=== PATIENT | male | born 1960 | race Two or more races ===

== ENCOUNTER 2018-05-20 10:36 | Emergency (ER) | payer MEDICARE, OTHER ==
[~2018-05-20] VITALS: Ht 175.3 cm; Wt 84.4 kg
[2018-05-20 10:59] VITALS: BP 147/91
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
[2018-05-20] MEDS ORDERED: LIDOCAINE WITH 8.4% SOD BICARB 3 ML DISP.SYRIN. IJ ONE (11:45)
== END 2018-05-20 11:51 | disposition home or self-care (01) ==
LOC: ER 10:36
DX: S01.01XA Laceration without foreign body of scalp, initial encounter (principal); W20.8XXA Other cause of strike by thrown, projected or falling object, initial encounter; Y93.89 Activity, other specified; Y92.149 Unspecified place in prison as the place of occurrence of the external cause; Y99.8 Other external cause status
CPT/HCPCS: 12001; 99283

== ENCOUNTER 2018-05-26 11:11 | Emergency (ER) | payer OTHER ==
[~2018-05-26] VITALS: Ht 175.3 cm; Wt 83.9 kg
[2018-05-26 11:20] VITALS: BP 142/87
--- NOTE | 2018-05-26 11:30 | PHYS DOC ---
Past History Past Medical History: High Cholesterol Past Surgical History: No Surgical History Alcohol Use: Occasionally Drug Use: None Social History Narrative: Pt 1 PPD smoker also "everyday beer drinker" Adult General Chief Complaint Chief Complaint: SUTURE/STAPLE REMOVAL [facility] 58-year-old male patient presented to ER for suture removal from his scalp that was placed 1 week ago in this emergency room. Patient denies any symptoms. Review of Systems Review of Systems Constitutional: Denies fever or chills [] Eyes: Denies change in visual acuity, redness, or eye pain [] HENT: Denies nasal congestion or sore throat [] Respiratory: Denies cough or shortness of breath [] Cardiovascular: No additional information not addressed in HPI [] GI: Denies abdominal pain, nausea, vomiting, bloody stools or diarrhea [] : Denies dysuria or hematuria [] Musculoskeletal: Denies back pain or joint pain [] Integument: Denies rash or skin lesions [] Neurologic: Denies headache, focal weakness or sensory changes [] Endocrine: Denies polyuria or polydipsia [] All other systems were reviewed and found to be within normal limits, except as documented in this note. Allergies Allergies Allergies Coded Allergies Type Severity Reaction Last Updated Verified No Known Drug Allergies 07/11/14 No Physical Exam Physical Exam Constitutional: Well developed, well nourished, no acute distress, non-toxic appearance. [] HENT: Normocephalic, healed small laceration of parietal scalp with [address],oropharynx moist, no oral exudates, nose normal. [] Eyes: PERRLA, EOMI, conjunctiva normal, no discharge. [] Neck: Normal range of motion, no tenderness, supple, no stridor. [] Cardiovascular:Heart rate regular rhythm, no murmur [] Lungs & Thorax: Bilateral breath sounds clear to auscultation [] Neurologic: Alert and oriented X 3, normal motor function, normal sensory function, no focal deficits noted. [] Psychologic: Affect normal, judgement normal, mood normal. [] Current Patient Data Vital Signs Vital Signs Date Time Temp Pulse Resp B/P (MAP) Pulse Ox O2 Delivery O2 Flow Rate FiO2 05/26/18 11:20 97.7 83 16 98 Room Air EKG EKG [] Radiology/Procedures Radiology/Procedures [] Course & Med Decision Making Course & Med Decision Making 2 jennifer was removed from scalp by [employer]. Kp Disclaimer Kp Disclaimer This electronic medical record was generated, in whole or in part, using a voice recognition dictation system. Departure Departure: Impression: Primary Impression: Removal of staple Additional Impression: Tobacco abuse counseling Disposition: HOME, SELF-CARE (At 1129) Condition: STABLE Referrals: NICHO FLORIAN MD (PCP) Patient Instructions: Smoking Cessation, Tips For Success, Staple Removal, Care After Additional Instructions: Keep wound clean and dry Problem Qualifiers MATEUSZ MESA MD May 26, 2018 11:30
== END 2018-05-26 11:34 | disposition home or self-care (01) ==
LOC: ER 11:11
DX: S01.01XD Laceration without foreign body of scalp, subsequent encounter (principal); E78.00 Pure hypercholesterolemia, unspecified; F17.200 Nicotine dependence, unspecified, uncomplicated; Z71.6 Tobacco abuse counseling; X58.XXXD Exposure to other specified factors, subsequent encounter
CPT/HCPCS: 99281

== ENCOUNTER 2020-05-01 05:26 | Observation (INO) | payer OTHER ==
[~2020-05-01] VITALS: Ht 175.3 cm; Wt 78.4 kg
--- NOTE | 2020-05-01 05:51 | PHYS DOC ---
Past History Past Medical History: High Cholesterol, Other Additional Past Medical Histor: prostate CA (EVELYN NICKERSON DO) Past Surgical History: No Surgical History (EVELYN NICKERSON DO) Alcohol Use: Occasionally Drug Use: None (EVELYN NICKERSON DO) General Adult EDM: Chief Complaint: ABSCESS HPI: HPI: 60-year-old male presents with perineal abscess. The patient had an abscess in this area that was surgically debrided by general surgeon a few years ago. He is concerned that it has recurred. Feels like it is been getting larger for abo ut a week. There is a lot of pressure and pain at this time. The patient would not prefer to have it numbed and drained in the ER. He denies fever chills. He has no other complaints at this time. (EVELYN NICKERSON DO) Review of Systems: Review of Systems: Constitutional: Denies fever or chills Eyes: Denies change in visual acuity HENT: Denies nasal congestion or sore throat Respiratory: Denies cough or shortness of breath Cardiovascular: Denies chest pain or edema GI: Denies abdominal pain, nausea, vomiting, bloody stools or diarrhea : Denies dysuria Musculoskeletal: Denies back pain or joint pain Integument: Abscess in the perineum Neurologic: Denies headache, focal weakness or sensory changes Endocrine: Denies polyuria or polydipsia Lymphatic: Denies swollen glands Psychiatric: Denies depression or anxiety (EVELYN NICKERSON DO) Heart Score: Risk Factors: Risk Factors: DM, Current or recent (<one month) smoker, HTN, HLP, family history of CAD, obesity. Risk Scores: Score 0 - 3: 2.5% MACE over next 6 weeks - Discharge Home Score 4 - 6: 20.3% MACE over next 6 weeks - Admit for Clinical Observation Score 7 - 10: 72.7% MACE over next 6 weeks - Early Invasive Strategies (EVELYN NICKERSON DO) Allergies: Allergies: Allergies Coded Allergies Type Severity Reaction Last Updated Verified No Known Drug Allergies 07/11/14 No (EVELYN NICKERSON DO) Physical Exam: PE: Constitutional: Well developed, well nourished, no acute distress, non-toxic appearance. [] HENT: Normocephalic, atraumatic, bilateral external ears normal, oropharynx moist, no oral exudates, nose normal. [] Eyes: PERRLA, EOMI, conjunctiva normal, no discharge. [] Neck: Normal range of motion, no tenderness, supple, no stridor. [] Cardiovascular:Heart rate regular rhythm, no murmur [] Lungs & Thorax: Bilateral breath sounds clear to auscultation [] Abdomen: Bowel sounds normal, soft, no tenderness, no masses, no pulsatile masses. [] Skin: 2 cm x 5 cm perineal abscess, extremely tender, no surrounding cellulitis. [] Back: No tenderness, no CVA tenderness. [] Extremities: No tenderness, no cyanosis, no clubbing, ROM intact, no edema. [] Neurologic: Alert and oriented X 3, normal motor function, normal sensory function, no focal deficits noted. [] Psychologic: Affect normal, judgement normal, mood normal. [] (EVELYN NICKERSON DO) PE: Constitutional: Well developed, well nourished, no acute distress, non-toxic appearance HENT: Normocephalic, atraumatic Eyes: Conjunctiva normal, no discharge Neck: Normal range of motion, no tenderness, supple Lungs & Thorax: No respiratory distress, equal chest rise and fall Abdomen: Soft, no tenderness Skin: Warm, dry, significant erythema and swelling at base of scrotum extending to left buttocks which is tender to palpation Extremities: No tenderness, ROM intact, no edema Neurologic: Alert and oriented X 3, no focal deficits noted Psychologic: Affect normal, judgment normal (SORIN BARBA DO) Current Patient Data: Vital Signs: Vital Signs Date Time Temp Pulse Resp B/P (MAP) Pulse Ox O2 Delivery O2 Flow Rate FiO2 05/01/20 05:26 98.2 87 18 151/91 (111) 99 Room Air (EVELYN NICKERSON DO) EKG: EKG: [] (EVELYN NICKERSON DO) Radiology/Procedures: Radiology/Procedures: [] (EVELYN NICKERSON DO) Radiology/Procedures: PROCEDURE: CT ABD PELV W/ IV CONTRST ONLY EXAM: CT Abdomen and Pelvis with IV contrast INDICATION: Reason: perineal abscess, H/O PROSTATE CA, OMNI 300, 75ml / Spl. Instructions: / History: TECHNIQUE: Multi-detector row CT images were acquired from the lung bases through the abdomen and pelvis with the use of IV contrast. Sagittal and coronal images were acquired from the transaxial data. All CT scans performed at this facility utilize dose optimization techniques as appropriate to the exam, including the following: Automated exposure control and adjustment of the mA and/or KV according to patient size (this includes techniques or standardized protocols for targeted exams where dose is indication/reason for exam). IV CONTRAST: Administered ORAL CONTRAST: Not administered COMPARISON: None FINDINGS: LOWER CHEST: Unremarkable LIVER: Unremarkable BILIARY SYSTEM: Gallbladder is unremarkable. Bile ducts are not dilated. PANCREAS: Unremarkable SPLEEN: Unremarkable ADRENALS: Unremarkable KIDNEYS & URETERS: Unremarkable BLADDER: Mild diffuse bladder wall thickening is present. REPRODUCTIVE ORGANS: Surgical changes from previous vasectomy are present. GASTROINTESTINAL: The stomach, small bowel, and colon are unremarkable. The appendix is normal. MESENTERY/PERITONEUM/RETROPERITONEUM: Unremarkable VASCULAR: Unremarkable LYMPH NODES: No adenopathy OSSEOUS & SOFT TISSUES: Low density soft tissue thickening in the subcutaneous fat in the left perineum is present measuring 3.5 cm AP by 1.5 cm mediolateral by 3.1 cm craniocaudal and could reflect the perianal abscess noted on clinical exam. No acute or aggressive appearing osseous lesions. IMPRESSION: Low density soft tissue mass or collection in the left perineum measuring 3.5 x 1.5 x 3.1 cm likely reflects the patient's known abscess. Apart from mild urinary bladder wall thickening that could be artifact of under distention, no acute inflammatory changes in the abdomen or pelvis otherwise noted. Correlate for any evidence of cystitis. Electronically signed by: Jose Edwards MD (05/01/2020 6:48 AM) [facility] (SORIN BARBA DO) Course & Med Decision Making: Course & Med Decision Making Pertinent Labs and Imaging studies reviewed. (See chart for details) The patient's work-up is pending. I am signing him out to Dr. Barba at 0600. He will determine his final disposition. [] (EVELYN NICKERSON DO) Course & Med Decision Making 0600- Sign out received from Dr. Nickerson for patient with perineal abscess. Hx of prior episode requiring surgical I&D with Dr. Jeter (general surgery). Patient pending laboratory and CT studies. Empiric antibiotics previously provided. Labs reviewed: CBC slightly elevated. Lactic acid WNL. BCX pending. CT imaging confirming perineal abscess measuring 3.5 x 1.5 x 3.1cm. Given reoccurrence of lesion and surrounding thickening concerning for cellulitis, patient requiring admission for further evaluation and treatment and general surgery consultation. Given possible surgical procedure, COVID testing obtained. Patient requiring transfer to [facility]. Notified Dr. Florian (PCP) who is in agreement. Discussed with Dr. Maddox (hospitalist) who is in agreement with transfer for admission. Discussed case with Dr. Ruggiero with Dr. Jeter (general surgery) who is in agreement with consultation. Discussed findings and plan with patient, who acknowledges understanding and agreement. (SORIN BARBA DO) Dragon Disclaimer: Dragon Disclaimer: This electronic medical record was generated, in whole or in part, using a voice recognition dictation system. (EVELYN NICKERSON DO) Departure Departure: Impression: Primary Impression: Abscess, perineum Additional Impression: Cellulitis of perineum Disposition: 05 TRANSFER OTHER ([facility]- Dr. Maddox (hospitalist) accepting) Condition: STABLE Referrals: NICHO FLORIAN MD (PCP) Justification of Admission: Justification of Admission: Justification of Admission Dx: N/A (EVELYN NICKERSON DO) Justification of Admission Dx: Yes Cellulitis: Cellulitis Comments: Perineal abscess (SORIN BARBA DO) EVELYN NICKERSON DO May 01, 2020 05:51 SORIN BARBA DO May 01, 2020 06:36
[2020-05-01] MEDS ORDERED: CONTRAST GIVEN MC PRN (06:00)
[2020-05-01] MEDS ORDERED: IV NORMAL SALINE 1,000ML 1,000 ML IV ONE (06:00)
[2020-05-01 06:16] LABS: BASO # 0.1 x10^3/uL (0.0-0.2); BASO % 1 % (0-3); EOS # 0.2 x10^3/uL (0.0-0.7); EOS % 1 % (0-3); HEMATOCRIT 42.9 % (39.0-53.0); HEMOGLOBIN 14.5 g/dL (13.0-17.5); LYMPH # 1.5 x10^3/uL (1.0-4.8); LYMPH % 12 % (24-48); MEAN CORPUSCULAR HEMOGLOBIN 32 pg (25-35); MEAN CORPUSCULAR HGB CONC 34 g/dL (31-37); MEAN CORPUSCULAR VOLUME 95 fL (79-100); MONO # 1.1 x10^3/uL (0.0-1.1); MONO % 9 % (0-9); NEUT # 9.6 x10^3uL (1.8-7.7); NEUT % 77 % (31-73); PLATELET COUNT 237 x10^3/uL (140-400); RED CELL DISTRIBUTION WIDTH 13.3 % (11.5-14.5); WHITE BLOOD COUNT 12.5 x10^3/uL (4.0-11.0)
[2020-05-01 06:25] LABS: CALCIUM 8.7 mg/dL (8.5-10.1); CREATININE 1.1 mg/dL (0.7-1.3); GFR 68.8; POTASSIUM 4.2 mmol/L (3.5-5.1)
[2020-05-01] MEDS ORDERED: PIPERACILLIN/TAZOBACTAM 3.375 GM in IV NORMAL SALINE 50ML 50 ML IV ONE ×2 (06:30→14:00)
[2020-05-01] MEDS ORDERED: IOHEXOL 300 MG/ML 75 ML VIAL. IV ONE (06:30)
[2020-05-01 06:31] LABS: BILIRUBIN,URINE NEG (NEG); CLARITY,URINE CLEAR; COLOR,URINE YELLOW; GLUCOSE,URINE NEG (NEG)
[2020-05-01 06:31] LABS: ALBUMIN 3.6 g/dL (3.4-5.0); TOTAL BILIRUBIN 0.7 mg/dL (0.2-1.0); TOTAL PROTEIN 7.2 g/dL (6.4-8.2)
[2020-05-01 06:32] LABS: BACTERIA,URINE 0 /HPF (0-FEW); NITRITE,URINE NEG (NEG); UROBILINOGEN,URINE 0.2 mg/dL (0.2 mg/dL); WBC,URINE 0 /HPF (0-4)
[2020-05-01] MEDS ORDERED: IV NORMAL SALINE 50ML 50 ML ONE ×3 (06:45→20:57)
[2020-05-01] MEDS ORDERED: PIPERACILLIN/TAZOBACTAM 3.375 GM VIAL IV ONE ×3 (06:45→20:57)
--- NOTE | 2020-05-01 06:51 | RAD ---
EXAM: CT Abdomen and Pelvis with IV contrast INDICATION: Reason: perineal abscess, H/O PROSTATE CA, OMNI 300, 75ml / Spl. Instructions: / History: TECHNIQUE: Multi-detector row CT images were acquired from the lung bases through the abdomen and pelvis with the use of IV contrast. Sagittal and coronal images were acquired from the transaxial data. All CT scans performed at this facility utilize dose optimization techniques as appropriate to the exam, including the following: Automated exposure control and adjustment of the mA and/or KV according to patient size (this includes techniques or standardized protocols for targeted exams where dose is indication/reason for exam). IV CONTRAST: Administered ORAL CONTRAST: Not administered COMPARISON: None FINDINGS: LOWER CHEST: Unremarkable LIVER: Unremarkable BILIARY SYSTEM: Gallbladder is unremarkable. Bile ducts are not dilated. PANCREAS: Unremarkable SPLEEN: Unremarkable ADRENALS: Unremarkable KIDNEYS & URETERS: Unremarkable BLADDER: Mild diffuse bladder wall thickening is present. REPRODUCTIVE ORGANS: Surgical changes from previous vasectomy are present. GASTROINTESTINAL: The stomach, small bowel, and colon are unremarkable. The appendix is normal. MESENTERY/PERITONEUM/RETROPERITONEUM: Unremarkable VASCULAR: Unremarkable LYMPH NODES: No adenopathy OSSEOUS & SOFT TISSUES: Low density soft tissue thickening in the subcutaneous fat in the left perineum is present measuring 3.5 cm AP by 1.5 cm mediolateral by 3.1 cm craniocaudal and could reflect the perianal abscess noted on clinical exam. No acute or aggressive appearing osseous lesions. IMPRESSION: Low density soft tissue mass or collection in the left perineum measuring 3.5 x 1.5 x 3.1 cm likely reflects the patient's known abscess. Apart from mild urinary bladder wall thickening that could be artifact of under distention, no acute inflammatory changes in the abdomen or pelvis otherwise noted. Correlate for any evidence of cystitis. Electronically signed by: Jose Edwards MD (05/01/2020 6:48 AM) [facility] [place]
[2020-05-01] MEDS ORDERED: PIPERACILLIN/TAZOBACTAM 3.375 GM in IV NORMAL SALINE 50ML 50 ML IV SCH (19:00)
--- NOTE | 2020-05-01 20:32 | NUR ---
CALLED [facility] AND ASKED ABOUT THE RESULTS ON THIS PATIENT COVID SWAB THAT WAS SENT EARLIER THIS MORNING. LOCATION MANAGER EDWIN SAID THE TEST WAS STILL PENDING AND [facility] WILL BE IN, IN THE MORNING TO RUN THE TEST. I ASKED EDWIN WHY IT WASN'T RAN TODAY. HE SAID, HE IS THIRD SHIFT HE DOESN'T KNOW WHY IT WASN'T DONE.
[2020-05-01] MEDS: PIPERACILLIN/TAZOBACTAM 3.375 GM in IV NORMAL SALINE 50ML 50 ML IV SCH (21:03)
[2020-05-01 23:40] VITALS: BP 152/77
--- NOTE | 2020-05-02 01:01 | NUR ---
The patient, LARISA MORILLO, 60 y/o, M admitted by NICHO FLORIAN MD, was given written information regarding hospital policies, unit procedures and contact persons. Valuables were checked and noted. PT with an abscess to the perineum. PT states this has been developing for about a week. This is a recurrent abscess, last treated with surgical excision. PT is awaiting transfer to [facility] for surgical debridement/excision. Upon transfer to bed from [facility], abscess opened draining large amounts of foul-smelling sanguinous fluid. PT cleaned, new gown given. PT at this time would like to be without underwear or dressing on as that causes more pain. PT given pain medication shortly after assessment. PT oriented to unit and belongings noted.
[2020-05-02] MEDS: PIPERACILLIN/TAZOBACTAM 3.375 GM in IV NORMAL SALINE 50ML 50 ML IV SCH ×2 (03:40→09:19)
--- NOTE | 2020-05-02 10:06 | NUR ---
patient is transferring to [facility] room 506 for surgery, vs are stable, consent for transfer signed by the pt, patient left room via EMS.
--- NOTE | 2020-05-02 10:48 | HP ---
ADMIT DATE: 05/01/2020 HISTORY OF PRESENT ILLNESS: A 60-year-old male who comes in with a perineal abscess. The patient had a previous problem in the perineal area a few years ago which was drained by surgeon, but apparently it has come back. The patient noted that he has a lot of pressure between the legs, severe pain of 9/10. The patient also noted that while he was being transferred from the ER up here to [facility] because of a diversion at [place], the area kind of busted open late at night and whether a culture was performed, it is not quite clear. At any case, the patient denies any fever or chills, but extreme pain as indicated. He was brought in for IV antibiotic therapy, until we could get a room and surgical room down at [place] for him to have this area drained. PAST MEDICAL HISTORY: Includes hypercholesterolemia, fluctuating PSA levels. He is a smoker. He had about a 35-40 pack year history of smoking. FAMILY HISTORY: Father had prostate cancer and father of that. ALLERGIES: No known allergies. MEDICATIONS: He list one medication as a home medication, but not quite sure what it is, it is not listed in the notes. REVIEW OF SYSTEMS: He denies any headaches, visual changes, blurred vision, double vision. Denies chest pain, shortness of breath, problems urinating, problems with abdominal pain, negative ____. The patient otherwise denies any neurological deficits except for grossly severe pain. PHYSICAL EXAMINATION: GENERAL: This is a pleasant white male, in severe amount of pain, kind of holding his groin. VITAL SIGNS: Blood pressure 152/77, respiratory rate 20, pulse 76, presently afebrile. In the ER, he has been afebrile. Pulse is in the 80s. Good oxygen saturation 96 to 99. NEUROLOGIC: The patient otherwise alert and oriented x 3. Speech fluent, spontaneous, appropriate. HEENT: Head was atraumatic, normocephalic. Mouth and throat normal. NECK: Supple. LUNGS: Diminished throughout, but basically clear. CARDIOVASCULAR: Regular sinus rhythm, S1, S2, without murmur, rub, thrill, or extra heart sound. ABDOMEN: Soft, nontender, no rebound or guarding. Positive bowel sounds, no hepatosplenomegaly. The genital area was normal except for extreme pain in between the legs and the perineal area. There was blood coming from the perineal area. EXTREMITIES: No clubbing, cyanosis, nor edema. NEUROLOGIC: The patient was alert and oriented x 3. Speech is fluent and spontaneous. The patient's CT scan showed low density soft tissue mass of 3.5 x roughly 3 cm, known abscess primarily in the left perineum. LABORATORY DATA: The patient's labs show white count of 12, hemoglobin 14, ____ 29, platelets normal 230. Chemistries 138, 4.2, BUN and creatinine 15 and 1.1, glucose 132 nonfasting. The patient's urine did show 6-10 red blood cells in the urine. IMPRESSION: Perineal abscess, recurrent; essential hypertension; history of elevated PSAs and family history of prostate cancer; smoking history, does not want to stop smoking now. PLAN: The patient will be placed on IV antibiotic therapy, Zosyn and monitor her for any other changes and we will get him down to [place] as soon as they have a bed available. NICHO FLORIAN MD DR: YVONNE/sam JOB#: [id number] / [id number]
== END 2020-05-02 10:05 | disposition short-term general hospital (02) ==
LOC: ER 05:26 → 1 SOUTH 20:24
PROVIDERS: ADMIT Family Medicine; ATTEND Family Medicine
DX: Z03.818 Encounter for observation for suspected exposure to other biological agents ruled out (principal); L02.215 Cutaneous abscess of perineum; L03.315 Cellulitis of perineum; E78.00 Pure hypercholesterolemia, unspecified; I10 Essential (primary) hypertension; Z85.46 Personal history of malignant neoplasm of prostate; Z87.891 Personal history of nicotine dependence; Z79.899 Other long term (current) drug therapy
CPT/HCPCS: 36415; 74177; 80053; 81001; 83605; 83735; 85025; 85610; 85730; 87040; 96365; 96366; 96375; 96376; 99285; G0378; J2543; J3010; J7030; Q9967; U0003; G0379; 99284-25

== ENCOUNTER → 2021-05-17 | Outpatient (CLI) | payer OTHER ==
--- NOTE | 2021-05-17 13:25 | RAD ---
EXAM: Left elbow, 3 views. HISTORY: Fall. COMPARISON: None. FINDINGS: 3 views of the left elbow are obtained. There is a mildly depressed radial head fracture wi th approximately 1 mL depression along the fracture line. There is curvilinear ossific density along the anterior distal humeral metaphysis likely due to an avulsion fracture fragment. There is enthesop athy at the triceps insertion. There is a large joint effusion. There is a soft tissue contusion or l aceration along the proximal dorsal forearm. IMPRESSION: 1. Mildly depressed radial head fracture with associated elbow effusion. 2. Curvilinear ossific density in the antecubital fossa adjacent to the distal humeral metaphysis, th e appearance of which favors an avulsion fracture fragment. Electronically signed by: Alexia Acevedo MD (05/17/2021 1:22 PM) [id number]
== END ==
LOC: RAD 12:40
PROVIDERS: ATTEND Nurse Practitioner Family
DX: S52.122A Displaced fracture of head of left radius, initial encounter for closed fracture (principal); M25.422 Effusion, left elbow; M77.8 Other enthesopathies, not elsewhere classified; M25.822 Other specified joint disorders, left elbow; X58.XXXA Exposure to other specified factors, initial encounter; Y93.89 Activity, other specified; Y92.89 Other specified places as the place of occurrence of the external cause; Y99.8 Other external cause status
CPT/HCPCS: 73080

== ENCOUNTER → 2021-05-25 | Outpatient (CLI) | payer OTHER ==
--- NOTE | 2021-05-25 11:16 | RAD ---
3 views left elbow compared to similar exam dated May 162020 for left elbow pain. FINDINGS: Mildly impacted intra-articular radial head fracture is redemonstrated and grossly unchange d. There is a persistent joint effusion, and the previously seen small curvilinear ossific avulsion f ragment in the antecubital region is also redemonstrated. There is improvement in the diffuse soft ti ssue swelling about the elbow however. IMPRESSION: 1. Stable subtly impacted comminuted intra-articular fracture of the radial head. 2. Stable avulsion fragment in the antecubital region. 3. Persistent elbow effusion. 4. Improved soft tissue swelling Electronically signed by: Augustine Castro MD (05/25/2021 11:13 AM) [id number]
== END ==
LOC: RAD 09:37
PROVIDERS: ATTEND Physician Assistant
DX: S52.122A Displaced fracture of head of left radius, initial encounter for closed fracture (principal); M79.89 Other specified soft tissue disorders; M25.822 Other specified joint disorders, left elbow; X58.XXXA Exposure to other specified factors, initial encounter; Y93.89 Activity, other specified; Y92.89 Other specified places as the place of occurrence of the external cause; Y99.8 Other external cause status
CPT/HCPCS: 73080

== ENCOUNTER → 2021-10-31 | Outpatient (CLI) | payer OTHER ==
--- NOTE | 2021-10-31 19:47 | RAD ---
EXAMINATION: Abdominal radiograph. VIEWS: 1 COMPARISON: CT abdomen dated 05/01/2020 INDICATION: 61 years, Male, lower abdominal pain. FINDINGS: Nonobstructive bowel gas pattern. No gross pneumoperitoneum.No abnormal intra-abdominal calcification s. No acute process process. IMPRESSION: Nonobstructive bowel gas pattern. Electronically signed by: Derek Lawrence MD (10/31/2021 7:44 PM) [facility]
== END ==
LOC: RAD 18:16
PROVIDERS: ATTEND Nurse Practitioner Family
DX: K59.00 Constipation, unspecified (principal)
CPT/HCPCS: 74018

== ENCOUNTER → 2021-11-01 | Outpatient (CLI) | payer OTHER ==
[~2021-11-01] MED LIST: IOHEXOL 240 MG/ML 50ML VIAL. ONE
[2021-11-01] MEDS: IOHEXOL 300 MG/ML 75 ML VIAL. IV ONE (15:51)
--- NOTE | 2021-11-01 16:55 | RAD ---
INDICATION: Reason: CONSTIPATION, POSSIBLE OBSTRUCTION / Spl. Instructions: OMNI 300 75 ML, OMNI 240 30 ML -PO / History: COMPARISON: April 2020 TECHNIQUE: Axial CT images were obtained through the abdomen and pelvis with intravenous contrast. One or more of the following individualized dose reduction techniques were utilized for this examinat ion: 1. Automated exposure control; 2. Adjustment of the mA and/or kV according to patient size; 3 . Use of iterative reconstruction technique. FINDINGS: Left lung base nodule is similar to prior. Vascular: Calcified plaque is seen. Hepatobiliary: Appears mildly low density. Can be from mild fatty infiltration but nonspecific findin g. Pancreas: No peripancreatic edema. Spleen: Spleen unremarkable. Renal/Bladder: No hydronephrosis. There are couple of lesions within the left kidney which appear hig her than simple density. The largest of which is seen posteriorly measuring 15 mm but there is an add itional one seen medially measuring 6 mm. Urinary bladder wall prominent in thickness but only partia lly distended and had a similar appearance on prior. Gastrointestinal: Wall thickening of the distal colon including the rectosigmoid region with adjacent edema in the fat. The appendix appears mildly dilated measuring up to about 6-7 mm but there is no d efinite surrounding inflammatory changes. Degenerative changes of the spine. Multilevel central canal and neural foraminal stenosis. IMPRESSION: * Wall thickening of the distal colon with adjacent edema in the fat which could be from distal col itis or diverticulitis. * The appendix is mildly dilated but the inflammatory changes appear more centered around the thick- walled colon rather than the appendix therefore this does not fill all of the CT criteria for appendi citis. * High density lesions of the left kidney. Could either be secondary to proteinaceous cyst or a slim d renal mass with renal cell carcinoma and oncocytoma both within the differential. given this findin g would consider obtaining ct, mri or ultrasound renal protocol to further evaluate. Electronically signed by: Jose Angel Agustin MD (11/01/2021 4:53 PM) [id number]
== END ==
LOC: CT 14:48
PROVIDERS: ATTEND Nurse Practitioner Adult Health
DX: R91.1 Solitary pulmonary nodule (principal); K63.89 Other specified diseases of intestine; N28.89 Other specified disorders of kidney and ureter; E78.5 Hyperlipidemia, unspecified; E03.9 Hypothyroidism, unspecified; K56.609 Unspecified intestinal obstruction, unspecified as to partial versus complete obstruction; K59.09 Other constipation; K61.2 Anorectal abscess; M47.819 Spondylosis without myelopathy or radiculopathy, site unspecified
CPT/HCPCS: 74177; Q9967